=== PATIENT | female | born 1980 | race Caucasian/White ===

== ENCOUNTER 2024-08-18 06:17 | Day surgery (SDC) | payer OTHER, SELFPAY ==
[2024-08-18 07:42] LABS: HCG, Urine Qualitative Screen Negative
== END 2024-08-18 09:36 | disposition home or self-care (01) ==
LOC: GI 06:17
PROVIDERS: ATTENDING PHYSICIAN Internal Medicine Gastroenterology
DX: K62.5 Hemorrhage of anus and rectum (principal); K64.8 Other hemorrhoids
CPT/HCPCS: 45378; 81025